=== PATIENT | male | born 1980 | race Two or more races ===

== ENCOUNTER 2022-08-17 22:34 | Emergency (ER) | payer SELFPAY ==
[~2022-08-17] VITALS: Ht 190.5 cm; Wt 127.0 kg
[2022-08-17 22:47] VITALS: BP 139/93
[2022-08-18] MEDS ORDERED: IBUP800T27 PO (01:45)
== END 2022-08-18 01:49 | disposition home or self-care (01) ==
LOC: EDBD 22:34 → ER 22:37
DX: S46.911A Strain of unspecified muscle, fascia and tendon at shoulder and upper arm level, right arm, initial encounter (principal); S20.211A Contusion of right front wall of thorax, initial encounter; S80.01XA Contusion of right knee, initial encounter; Z79.1 Long term (current) use of non-steroidal anti-inflammatories (NSAID); V43.52XA Car driver injured in collision with other type car in traffic accident, initial encounter; Y93.89 Activity, other specified; Y92.410 Unspecified street and highway as the place of occurrence of the external cause; Y99.8 Other external cause status
CPT/HCPCS: 71250; 73030; 73562